=== PATIENT | female | born 1965 | race Caucasian/White ===

== ENCOUNTER 2016-11-09 15:58 | Emergency (ER) | payer OTHER ==
[~2016-11-09 15:58] MED LIST: NORCO 10-325 T1 EACH PO
[2016-11-09 19:12] LABS: HEMOGLOBIN 12.9 gm/dl (12.3-15.3); RED BLOOD COUNT 4.29 M/UL (4.00-5.10)
[2016-11-09 19:32] LABS: BUN/CREATININE RATIO 20 (0-10)
== END 2016-11-09 20:15 | disposition home or self-care (01) ==
LOC: ER1 15:58
PROVIDERS: Physician Assistant Medical
DX: M25.50 Pain in unspecified joint (principal); R73.9 Hyperglycemia, unspecified; Z87.39 Personal history of other diseases of the musculoskeletal system and connective tissue; F17.210 Nicotine dependence, cigarettes, uncomplicated; Z90.49 Acquired absence of other specified parts of digestive tract; Z88.5 Allergy status to narcotic agent; Z88.8 Allergy status to other drugs, medicaments and biological substances
CPT/HCPCS: 36415; 80053; 84550; 85025; 96372; 99283; J1100

== ENCOUNTER 2021-05-08 13:46 | Emergency (ER) | payer OTHER ==
[~2021-05-08 13:46] MED LIST changes: +DICLOFENAC POTA50 MG PO; +PERCOCET 7.5-31 EACH PO; +PREDNISONE20 MG PO
[2021-05-08 14:41] LABS: RED BLOOD COUNT 4.54 M/UL (4.00-5.10); WHITE BLOOD COUNT 9.2 K/UL (4.5-11.0)
[2021-05-08 16:15] LABS: BUN/CREATININE RATIO 19 (0-10)
[2021-05-08] MEDS ORDERED: METRONIDAZOLE500 MG PO (16:52)
[2021-05-08] MEDS ORDERED: PROMETHEGAN25 MG PR (16:52)
[2021-05-08] MEDS ORDERED: AUGMENTIN 875-1 EACH PO (16:55)
== END 2021-05-08 16:50 | disposition home or self-care (01) ==
LOC: ER1 13:46
PROVIDERS: Physician Assistant
DX: K52.9 Noninfective gastroenteritis and colitis, unspecified (principal); I10 Essential (primary) hypertension; Z90.710 Acquired absence of both cervix and uterus; F17.210 Nicotine dependence, cigarettes, uncomplicated; Z90.89 Acquired absence of other organs
CPT/HCPCS: 71045; 80053; 81001; 82550; 82553; 83605; 83690; 83874; 84484; 85025; 87086; 93005; 96374; 96375; 99284; J1170; J2550

== ENCOUNTER 2021-08-06 14:59 | Emergency (ER) | payer OTHER ==
[~2021-08-06 14:59] MED LIST changes: +AUGMENTIN 875-1 EACH PO; +METRONIDAZOLE500 MG PO; +PROMETHEGAN25 MG PR
[2021-08-06] MEDS ORDERED: PERCOCET 7.5-31 EACH PO (16:40)
[2021-08-06] MEDS ORDERED: POLYSPORIN OI28.3 G1 TP (16:42)
== END 2021-08-06 17:00 | disposition home or self-care (01) ==
LOC: ER1 14:59
DX: T21.45XA Corrosion of unspecified degree of buttock, initial encounter (principal); F17.200 Nicotine dependence, unspecified, uncomplicated; X08.8XXA Exposure to other specified smoke, fire and flames, initial encounter
CPT/HCPCS: 90715; 96372; 99283; J2270; J2550